=== PATIENT | female | born 2005 | race Hispanic/Latino ===

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

== ENCOUNTER 2024-11-09 20:37 | Emergency (ER) | payer SELFPAY ==
[2024-11-09] MEDS ORDERED: Ibuprofen 800 MG TAB ONE (21:27)
[2024-11-09] MEDS ORDERED: Ondansetron ODT 4 MG TAB ONE (21:27)
[2024-11-09 21:42] LABS: Pregnancy Test - Urine (BHCG) Negative (Negative)
[2024-11-09 21:43] LABS: Pregu Control Background? CLEAR/WHITE (CLR/WHITE); Pregu Control Bar Appear? YES (CONTROL BAR); Specific Gravity 1.018 (1.002-1.036)
[2024-11-09 21:44] LABS: CAUTI Indications for Culture Pelvic or flank pain; RBC/HPF 0-3 HPF (0-3)
[2024-11-09 21:46] LABS: Bacteria/HPF 1+ HPF (None Seen); Bilirubin Negative (Negative); Blood, Urine Trace (Negative); Clarity Clear (Clear); Glucose, Urine (Dipstick) Normal (Negative); Ketone, Urine Negative (Negative); Leukocyte 250 Leu/uL (Negative); Nitrite Negative (Negative); Protein, Urine (Dipstick) Negative (Neg-Trace); Specific Gravity, Urine 1.018 (1.002-1.036); Urobilinogen Normal mg/dL (Less than 2)
[2024-11-09 21:47] LABS: Urine Culture Reflex Yes Yes
== END 2024-11-09 22:09 | disposition home or self-care (01) ==
LOC: ERS 20:37
DX: J10.1 Influenza due to other identified influenza virus with other respiratory manifestations (principal); N39.0 Urinary tract infection, site not specified; R11.2 Nausea with vomiting, unspecified
CPT/HCPCS: 81001; 81025; 87086; 87428; 99283; Q0162

== ENCOUNTER 2025-06-23 20:08 | Emergency (ER) | payer SELFPAY ==
[2025-06-23] MEDS ORDERED: Ondansetron PF 4 MG/2 ML Vial ONE (20:28)
[2025-06-23] MEDS ORDERED: HYDROcodone/Acetaminophen 10/325 mg Tablet ONE (20:29)
[2025-06-23 20:58] LABS: #Basophils 0.05 10x3/uL (0.0-0.2); #Eosinophils 0.11 10x3/uL (0.0-0.7); #Monocytes 0.59 10x3/uL (0.11-0.59); #Neutrophils 5.20 10x3/uL (1.40-6.50); %Basophils 0.5 % (0.0-1.0); %Eosinophils 1.1 % (0.0-10.0); %Lymphocytes 38.3 % (28.0-48.0); %Monocytes 6.1 % (0.0-4.0); %Neutrophils 53.7 % (31.0-61.0); Hematocrit 40.9 % (36.0-47.0); Hemoglobin 13.5 g/dL (12.0-16.0); Mean Corpuscular Hemoglobin 26.5 pg (25.0-35.0); Mean Corpuscular Volume 80.4 fL (78.0-98.0); Platelet Count 354 10x3/uL (130-400); Red Blood Cell (RBC) Count 5.09 mill/uL (4.00-5.20); White Blood Cell (WBC) Count 9.69 10x3/uL (4.8-10.8)
[2025-06-23 21:06] LABS: BHCG - Serum Negative (NEGATIVE); Pregs Control Background? CLEAR/WHITE (CLR/WHITE); Pregs Control Bar Appear? YES (CONTROL BAR)
[2025-06-23 21:15] LABS: ALT (SGPT) 20 U/L (Less than 34); AST (SGOT) 19 U/L (11-34); Albumin 4.3 g/dL (3.1-4.5); Alkaline Phosphatase 68 U/L (40-100); Anion Gap 14 mmol/L (10-20); BUN (Urea Nitrogen) 10 mg/dL (7.0-18.7); Bilirubin, Total 0.3 mg/dL (0.3-1.2); CK (CPK) 109 U/L (29-168); Calc. Creatinine Clearance 0 mL/min (70-130); Calcium 9.2 mg/dL (7.8-10.44); Carbon Dioxide 20 mmol/L (22-29); Chloride 110 mmol/L (98-107); Globulin 4.1 g/dL (2.4-3.5); Glucose 108 mg/dL (70-105); Potassium 3.4 mmol/L (3.5-5.1); Sodium 141 mmol/L (136-145)
[2025-06-23] MEDS ORDERED: Bacitracin 1 PK ONE (21:28)
== END 2025-06-23 22:00 | disposition home or self-care (01) ==
LOC: ERS 20:08
DX: T24.211A Burn of second degree of right thigh, initial encounter (principal); T25.221A Burn of second degree of right foot, initial encounter; T23.131A Burn of first degree of multiple right fingers (nail), not including thumb, initial encounter; Z55.6 Problems related to health literacy; X12.XXXA Contact with other hot fluids, initial encounter
CPT/HCPCS: 16020; 80053; 82550; 83605; 84703; 85025; 96374; 96375; J2270; J2405

== ENCOUNTER 2025-08-21 09:32 | Emergency (ER) | payer SELFPAY ==
[~2025-08-21 09:32] MED LIST: Iopamidol-370 76% 500 ML MDV (1 ML CHARGE) ONE
[2025-08-21 11:06] LABS: #Basophils 0.04 10x3/uL (0.0-0.2); #Eosinophils 0.14 10x3/uL (0.0-0.7); #Monocytes 0.78 10x3/uL (0.11-0.59); #Neutrophils 5.37 10x3/uL (1.40-6.50); %Basophils 0.4 % (0.0-1.0); %Eosinophils 1.5 % (0.0-10.0); %Lymphocytes 34.0 % (28.0-48.0); %Monocytes 8.1 % (0.0-4.0); %Neutrophils 55.8 % (31.0-61.0); Hematocrit 41.0 % (36.0-47.0); Hemoglobin 13.6 g/dL (12.0-16.0); Mean Corpuscular Hemoglobin 26.7 pg (25.0-35.0); Mean Corpuscular Volume 80.4 fL (78.0-98.0); Platelet Count 337 10x3/uL (130-400); Red Blood Cell (RBC) Count 5.10 mill/uL (4.00-5.20); White Blood Cell (WBC) Count 9.62 10x3/uL (4.8-10.8)
[2025-08-21 11:49] LABS: ALT (SGPT) 22 U/L (Less than 34); AST (SGOT) 23 U/L (11-34); Albumin 4.1 g/dL (3.1-4.5); Alkaline Phosphatase 67 U/L (40-100); Anion Gap 16 mmol/L (10-20); BUN (Urea Nitrogen) 11 mg/dL (7.0-18.7); Bilirubin, Total 0.3 mg/dL (0.3-1.2); Calc. Creatinine Clearance 0 mL/min (70-130); Calcium 9.4 mg/dL (7.8-10.44); Carbon Dioxide 23 mmol/L (22-29); Chloride 105 mmol/L (98-107); Globulin 3.4 g/dL (2.4-3.5); Glucose 75 mg/dL (70-105); Lipase 13 U/L (8-78); Potassium 3.8 mmol/L (3.5-5.1); Sodium 140 mmol/L (136-145)
[2025-08-21 12:24] LABS: CAUTI Indications for Culture Pelvic or flank pain; Glucose, Urine (Dipstick) Normal (Negative); Leukocyte 75 Leu/uL (Negative); Protein, Urine (Dipstick) Negative (Neg-Trace); RBC/HPF Greater than 50 HPF (0-3); Specific Gravity, Urine 1.007 (1.002-1.036)
[2025-08-21 12:25] LABS: Bacteria/HPF 1+ HPF (None Seen); Urine Culture Reflex No No
== END 2025-08-21 14:00 | disposition home or self-care (01) ==
LOC: ERS 09:32
DX: N93.8 Other specified abnormal uterine and vaginal bleeding (principal)
CPT/HCPCS: 36415; 74177; 76856; 80053; 81001; 83690; 84702; 85025